=== PATIENT | female | born 1980 | race Caucasian/White ===

== ENCOUNTER → 2022-03-03 10:12 | Outpatient (BNVA) | payer OTHER, SELFPAY | PROVIDERS: Visit Provider Physician Assistant | DX: M25.531 Pain in right wrist (principal) | CPT/HCPCS: 73110; 99204 ==

== ENCOUNTER → 2022-03-08 13:25 | Outpatient (BNVA) | payer OTHER, SELFPAY | PROVIDERS: Visit Provider Physician Assistant | DX: M25.531 Pain in right wrist (principal) | CPT/HCPCS: 99213 ==